=== PATIENT | female | born 1995 | race Caucasian/White ===

== ENCOUNTER 2016-09-08 00:39 | Emergency (ER) | payer SELFPAY ==
[~2016-09-08] VITALS: Ht 157.5 cm; Wt 81.6 kg
[2016-09-08 00:43] VITALS: BP 118/81
--- NOTE | 2016-09-08 00:45 | NUR ---
PATIENT BROUGHT TO ER BED 05 BY EMS
--- NOTE | 2016-09-08 00:45 | NUR ---
PATIENT AMBULATED TO BATHROOM
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
--- NOTE | 2016-09-08 01:25 | NUR ---
Patient being evaluated by DR. MERCHANT at bedside.
[2016-09-08 01:45] VITALS: BP 115/76
--- NOTE | 2016-09-08 01:45 | NUR ---
Patient discharged with v/s stable. Written and verbal after care instructions given and explained. Patient alert, oriented and verbalized understanding of instructions. Ambulatory with steady gait. All questions addressed prior to discharge. ID band removed. Patient advised to follow up with PMD. Rx of NORCO 5MG-325MG PO, MOTRIN 800MG PO given. Patient educated on indication of medication including possible reaction and side effects. Opportunity to ask questions provided and answered.
== END 2016-09-08 01:45 | disposition home or self-care (01) ==
LOC: MED 00:39
DX: R07.89 Other chest pain (principal); J45.909 Unspecified asthma, uncomplicated; F17.200 Nicotine dependence, unspecified, uncomplicated; V89.2XXA Person injured in unspecified motor-vehicle accident, traffic, initial encounter; Y93.89 Activity, other specified; Y92.89 Other specified places as the place of occurrence of the external cause; Y99.8 Other external cause status

== ENCOUNTER 2019-02-22 03:52 | Emergency (ER) | payer MEDICAID ==
[~2019-02-22] VITALS: Ht 157.5 cm; Wt 90.7 kg
[2019-02-22 03:59] VITALS: BP 129/66
--- NOTE | 2019-02-22 04:13 | NUR ---
PT AMBULATED TO BED 3 WITH STEADY GAIT.
--- NOTE | 2019-02-22 04:18 | NUR ---
PT CAME TO ER C/O OF LEFT THUMB PAIN X 2 HOURS. LEFT THUMB IS SWOLLEN AND HURTS UPON MOVEMENT. PER PT INJURY/TRAUMA IS UNKNOWN. PAIN LEVEL 6/10, ACHING, CONSISTENT PAIN. PT ADMITS TO DRINKING ALCOHOL AND SMOKING CIGARETTES. VSS. SAFETY MEASURES IN PLACE. WAITING FOR ERMD TO EVALUATE PT.
[2019-02-22 05:40] VITALS: BP 129/66
--- NOTE | 2019-02-22 05:40 | NUR ---
Patient discharged with v/s stable. Written and verbal after care instructions given and explained. Patient alert, oriented and verbalized understanding of instructions. Ambulatory with steady gait. All questions addressed prior to discharge. ID band removed. Patient advised to follow up with PMD. Rx of NAPROSYN WAS given. Patient educated on indication of medication including possible reaction and side effects. Opportunity to ask questions provided and answered. Addendum: 02/22/19 at 0541 by BRITTANY PT WAS DISCHARGED BY DR. MARTINEZ
== END 2019-02-22 05:40 | disposition home or self-care (01) ==
LOC: MED 03:52
DX: S63.602A Unspecified sprain of left thumb, initial encounter (principal); J45.909 Unspecified asthma, uncomplicated; X58.XXXA Exposure to other specified factors, initial encounter; Y93.89 Activity, other specified; Y92.89 Other specified places as the place of occurrence of the external cause; Y99.8 Other external cause status
CPT/HCPCS: 73140; 99283; Q0092

== ENCOUNTER 2023-04-05 16:28 | Emergency (ER) | payer MEDICAID, OTHER ==
[~2023-04-05] VITALS: Ht 162.6 cm; Wt 66.7 kg
[2023-04-05 16:44] VITALS: BP 129/92; PULSE 81; RESP 18; TEMP 98.7; O2SAT 98
[2023-04-05 17:50] LABS: APPEARANCE,URINE CLEAR (CLEAR); BILIRUBIN,URINE NEGATIVE (NEGATIVE); BLOOD, URINE NEGATIVE (NEGATIVE); COLOR,URINE YELLOW (YELLOW); LEUKOCYTE ESTERASE ,URINE TRACE (NEGATIVE); NITRITE, URINE NEGATIVE (NEGATIVE); PH,URINE 6.5 (5.0-9.0); PROTEIN,URINE NEGATIVE (NEGATIVE); UGLUCOSE NEGATIVE (NEGATIVE); UROBILINOGEN,URINE 0.2 EU/dL (0.2 - 1)
[2023-04-05 17:59] LABS: BACTERIA,URINE 1+ /HPF (None Seen); MUCUS,URINE 1+ /LPF (None Seen); RBC,URINE 0-5 /HPF (0-5); SQUAMOUS EPITHELIAL CELL,UR 20-50 /LPF (0-3 (FEW)); TRICHOMONAS,URINE None Seen /HPF (None Seen); WBC,URINE 0-5 /HPF (0-5); YEAST,URINE None Seen /HPF (None Seen)
[2023-04-05 18:20] LABS: BASOPHILS % (AUTO) 0.4 % (0.0-2.0); EOSINOPHILS # (AUTO) 0.1 K/uL (0-0.4); EOSINOPHILS % (AUTO) 1.8 % (0.0-4.0); HEMATOCRIT 41.1 % (36-48); HEMOGLOBIN 13.9 g/dL (12.0-16.0); LYMPHOCYTES # (AUTO) 1.7 K/uL (2.5-16.5); LYMPHOCYTES % (AUTO) 21.9 % (20.5-51.1); MEAN CORPUSCULAR HEMOGLOBIN 31 pg (27-31); MEAN CORPUSCULAR HGB CONC 34 g/dL (33-37); MEAN CORPUSCULAR VOLUME 91.4 fL (80-94); MONOCYTES # (AUTO) 0.7 K/uL (0.8-1.0); MONOCYTES % (AUTO) 9.2 % (1.7-9.3); NEUTROPHILS # (AUTO) 5.3 K/uL (1.8-7.7); NEUTROPHILS % (AUTO) 66.7 % (42.2-75.2); PLATELET COUNT (AUTO) 279 K/uL (140-450); RED CELL DISTRIBUTION WIDTH 12.3 % (11.6-13.7)
[2023-04-05 19:03] LABS: ANION GAP 14.7 (8-16); CALCIUM 8.6 mg/dL (8.5-10.1); CREATININE 0.9 mg/dL (0.6-1.3); POTASSIUM 3.7 mmol/L (3.5-5.1); TOTAL BILIRUBIN 0.2 mg/dL (0.0-1.0); TOTAL PROTEIN, SERUM 7.3 g/dL (6.4-8.2)
[2023-04-05] MEDS ORDERED: cefTRIAXone 1,000 MG in LIDOCAINE MPF 1% 2.1 ML IM ONE (19:25)
[2023-04-05] MEDS ORDERED: CEPH-588 PO (19:29)
[2023-04-05] MEDS ORDERED: cefTRIAXone 1,000 MG VIAL ONE (20:56)
[2023-04-05] MEDS ORDERED: LIDOCAINE MPF 1% 5 ML ONE (20:57)
[2023-04-05 21:02] VITALS: BP 122/81; PULSE 78; RESP 16; TEMP 98.7; O2SAT 98
== END 2023-04-05 21:02 | disposition home or self-care (01) ==
LOC: MED 16:28
DX: K59.00 Constipation, unspecified (principal); N39.0 Urinary tract infection, site not specified; R03.0 Elevated blood-pressure reading, without diagnosis of hypertension; J45.909 Unspecified asthma, uncomplicated; Z79.899 Other long term (current) drug therapy
CPT/HCPCS: 36415; 74022; 76770; 80053; 81001; 81025; 83690; 85025; 87086; 99284; J0696; J2001